=== PATIENT | female | born 1960 | race Hispanic/Latino ===

== ENCOUNTER → 2016-07-20 | Outpatient (CLI) | payer BC | END | disposition home or self-care (01) | LOC: GMAM 14:33 | PROVIDERS: ATTEND Family Medicine | DX: E03.9 Hypothyroidism, unspecified (principal) ==

== ENCOUNTER → 2016-09-03 | Outpatient (CLI) | payer BC | LOC: GMAM 14:47 | PROVIDERS: ATTEND Family Medicine | DX: J30.9 Allergic rhinitis, unspecified (principal); E03.9 Hypothyroidism, unspecified ==

== ENCOUNTER → 2016-12-25 | Outpatient (CLI) | payer BC | END | disposition home or self-care (01) | LOC: GMAM 10:23 | PROVIDERS: ATTEND Family Medicine | DX: E03.9 Hypothyroidism, unspecified (principal) ==

== ENCOUNTER → 2017-01-13 | Outpatient (CLI) | payer BC ==
--- NOTE | 2017-01-13 13:36 | CT ---
EXAM DESCRIPTION: Chest w/Contrast CLINICAL HISTORY: SKIN MASS right paraspinal upper back. COMPARISON: None. TECHNIQUE: Spiral-axial scans at 5.0 mm intervals through the lungs and thorax with IV contrast. Coronal and sagittal 2.0 Mm reconstructions. 92nd delayed axial 5.0 mm scans through the thorax. No adverse reactions. Total Exam DLP: 1232.79 mGy-cm. This exam was performed according to our departmental dose-optimization program which includes automated exposure control, adjustment of the mA and/or kV according to patient size and/or use of iterative reconstruction technique; to reduce radiation dose to as low as reasonably achievable (ALARA). FINDINGS: Two markers placed on the skin where masses palpable: T8-9 level and T2 level. No abnormal enhancement. No abnormal density of the subcutaneous adipose tissue. No skin thickening. No calcifications. Normal density and appearance of the paraspinal muscles at these same levels. No significant lung lesions. Trace amount of perihilar peribronchial wall thickening. No pleural effusion or pneumothorax. Relatively uniform enhancement of the thyroid gland. Bilateral small axillary lymph nodes. No soft tissue masses or adenopathy in the base of the neck. No hilar or mediastinal adenopathy. Esophagus is unremarkable. No subdiaphragmatic fluid or free air in the included peritoneal space. Normal size and enhancement of the spleen. Previous cholecystectomy. Mild prominence of the included common bile duct. Included pancreas and liver are unremarkable. Questionable small hiatal hernia. Thoracic dextroscoliosis. Multiple levels of spondylosis. Also height of the anterior and left lateral T9 vertebral body. No significant retropulsion. Focal kyphosis at this level. No bone destruction. IMPRESSION: 1. No soft tissue masses or abnormal enhancement in the right paraspinal subcutaneous adipose tissues, where skin markers are placed. No skin thickening. No abnormal paraspinal musculature. Small lipomas could be undetected by CT technique with IV contrast. 2. Partial compression of the T9 vertebral body with kyphosis. Also thoracic spondylosis and mild dextroscoliosis. 3. No significant lung, mediastinal, or hilar lesions. Electronically signed by: Tereso Watts MD 01/13/2017 1:35 PM CDT
== END ==
LOC: CT 09:04
PROVIDERS: ATTEND Family Medicine
DX: R22.2 Localized swelling, mass and lump, trunk (principal); Z86.018 Personal history of other benign neoplasm

== ENCOUNTER → 2017-04-26 | Outpatient (CLI) | payer BC | END | disposition home or self-care (01) | LOC: GMAM 14:48 | PROVIDERS: ATTEND Family Medicine | DX: E03.9 Hypothyroidism, unspecified (principal) ==

== ENCOUNTER → 2017-10-07 | Outpatient (CLI) | payer BC | LOC: GMATM 12:05 | PROVIDERS: ATTEND Nurse Practitioner Family | DX: E53.9 Vitamin B deficiency, unspecified (principal); E03.9 Hypothyroidism, unspecified; E55.9 Vitamin D deficiency, unspecified ==

== ENCOUNTER → 2017-11-25 | Outpatient (CLI) | payer BC | LOC: GMATM 14:55 | PROVIDERS: ATTEND Nurse Practitioner Family | DX: E53.9 Vitamin B deficiency, unspecified (principal) ==

== ENCOUNTER → 2018-01-12 | Outpatient (CLI) | payer BC | LOC: GMAM 10:54 | PROVIDERS: ATTEND Family Medicine | DX: E53.8 Deficiency of other specified B group vitamins (principal); E03.9 Hypothyroidism, unspecified; E55.9 Vitamin D deficiency, unspecified ==

== ENCOUNTER → 2018-01-13 | Outpatient (CLI) | payer BC ==
--- NOTE | 2018-01-17 15:43 | MAM ---
EXAM DESCRIPTION: 3D Screening BILATERAL : Digital Mammography. CLINICAL HISTORY: 57 years Female SCREENING . No complaints and no personal history or family history of breast cancer. Remote family history of ovarian cancer. Childbirth. Postmenopausal. Currently on HRT. Lifetime risk of developing breast cancer (Tyrer-Cuzick model) is 8.3 %. COMPARISON: 2-D digital screening bilateral study 02/16/2015. No prior reports available. TECHNIQUE: Bilateral CC and MLO projection full-field images, Digital tomosynthesis mammographic technique. Bilateral digital 2-D full-field MLO images. CAD not utilized. FINDINGS: The breast parenchymal density pattern is: Scattered areas of fibroglandular density. No skin thickening or nipple retraction. Bilateral solitary microcalcifications. Bilateral axillary lymph nodes. No new focal, stellate mass or density, focal asymmetry , and no suspicious microcalcifications bilaterally. Stable mammograms compared to prior study. Taking into account, differences in mammographic technique. IMPRESSION: Benign exam. BIRAD CATEGORY: 2 BENIGN FINDINGS. RECOMMENDATIONS: FOLLOW UP: Routine digital bilateral screening, one year interval from January 2018. Written communication explaining the IMPRESSION and follow-up, will be mailed to the patient and referring health care provider. According to the [employer], yearly mammograms are recommended starting at age 40 and continuing as long as a woman is in good health. Any breast change noted on a breast self-exam should be reported promptly to the patient's healthcare provider. Breast MRI is recommended for women with an approximately 20-25% or greater lifetime risk of breast cancer, including women with a strong family history of breast or ovarian cancer and women who have been treated for Hodgkin's disease. A negative mammographic report should not delay tissue diagnosis in patients with significant clinical history or physical findings. Extremely dense breast tissue limits the sensitivity of digital mammography. Electronically signed by: Tereso Watts MD 01/17/2018 3:41 PM CDT
== END ==
LOC: MAMMO 10:00
PROVIDERS: ATTEND Family Medicine
DX: Z12.31 Encounter for screening mammogram for malignant neoplasm of breast (principal)

== ENCOUNTER → 2019-10-10 | Outpatient (CLI) | payer OTHER | LOC: GMAM 11:36 | PROVIDERS: ATTEND Family Medicine | DX: E53.9 Vitamin B deficiency, unspecified (principal); E55.9 Vitamin D deficiency, unspecified; E03.9 Hypothyroidism, unspecified; E78.2 Mixed hyperlipidemia; I10 Essential (primary) hypertension ==